=== PATIENT | male | born 1985 | race African-American/Black ===

== ENCOUNTER 2016-10-30 14:58 | Emergency (ER) | payer OTHER ==
[2016-10-30 15:07] VITALS: BP 152/88
--- NOTE | 2016-10-30 15:51 | RAD ---
Right hand, 3 views, 10/30/2016: History: Pain, injury There is a fracture of the distal fifth metacarpal at the base of the metacarpal head. There is slight volar and radial angulation of the distal fracture fragment without significant displacement. No other fracture or dislocation is identified. IMPRESSION: Nondisplaced fracture of the distal fifth metacarpal.
[2016-10-30] MEDS ORDERED: HYDR-971 PO (16:19)
[2016-10-30] MEDS ORDERED: NAPR500T8 PO (16:19)
--- NOTE | 2016-10-30 16:19 | PHYS DOC ---
Past Medical History Past Medical History: No Pertinent History Past Surgical History: No Surgical History Alcohol Use: Occasionally Drug Use: None Adult General Chief Complaint Chief Complaint: HAND PROBLEM HPI HPI Patient is a 31 year old Male with no significant medical history who presents today with right hand pain 4 out of 10 that began this morning. Patient states last night he was out with family members and had a couple shots of whiskey which he never drinks. He states he doesn't know what happened after that. He states he doesn't know if he fell or punched a wall. Review of Systems Review of Systems Constitutional: Denies fever or chills [] Musculoskeletal: Right hand pain Integument: Denies rash or skin lesions [] Neurologic: Denies headache, focal weakness or sensory changes [] Endocrine: Denies polyuria or polydipsia [] Allergies Allergies Allergies Coded Allergies Type Severity Reaction Last Updated Verified No Known Drug Allergies 10/30/16 No Physical Exam Physical Exam Constitutional: Well developed, well nourished, no acute distress, non-toxic appearance. [] Skin: Warm, dry, no erythema, no rash. [] Back: No tenderness, no CVA tenderness. [] Extremities: Right hand with small amount of swelling on the knuckles. Bruising noted on the right hand and knuckles. Right fifth knuckle appears deformed. Tenderness on palpation of the right fifth knuckle on the right index finger knuckle. Slightly Limited range of motion to the right index finger and pinky finger due to pain. Adequate ulna radial and medial sensation to the right hand. +2 right radial pulse. Cap refill less than 2 seconds the right upper extremity. Neurologic: Alert and oriented X 3, normal motor function, normal sensory function, no focal deficits noted. [] Psychologic: Affect normal, judgement normal, mood normal. [] Current Patient Data Vital Signs Vital Signs Date Time Temp Pulse Resp B/P Pulse Ox O2 Delivery O2 Flow Rate FiO2 10/30/16 15:07 99.1 106 20 96 Room Air 99.1 EKG EKG [] Radiology/Procedures Radiology/Procedures []PROCEDURE: HAND RIGHT 3V Right hand, 3 views, 10/30/2016: History: Pain, injury There is a fracture of the distal fifth metacarpal at the base of the metacarpal head. There is slight volar and radial angulation of the distal fracture fragment without significant displacement. No other fracture or dislocation is identified. IMPRESSION: Nondisplaced fracture of the distal fifth metacarpal. DICTATED and SIGNED BY: FRANKY KEY MD DATE: 10/30/16 1548 CC: BOBBY BARRIGA APRN ~ Course & Med Decision Making Course & Med Decision Making Pertinent Labs and Imaging studies reviewed. (See chart for details) Patient is in the ED with right hand pain, he doesn't know what happened last night whether he punched a wall or fell down. Right hand x-ray interpreted by radiologist-Nondisplaced fracture of the distal fifth metacarpal. He was placed in ulnar gutter by the solar installer technician, neurovascular exam done by me is normal. Cap refill <2 secs. Ice elevation encouraged. Follow-up with Ortho tomorrow. Dragon Disclaimer Dragon Disclaimer This electronic medical record was generated, in whole or in part, using a voice recognition dictation system. Departure Departure Impression: Primary Impression: Metacarpal bone fracture Disposition: HOME, SELF-CARE Condition: STABLE Referrals: GONZÁLEZ SULLIVAN MD call his office and get a follow appointment tomorrow Patient Instructions: Hand Fracture, Fifth Metacarpal Additional Instructions: You have right fifth metacarpal fracture. Keep the affected extremity iced and elevated as tolerated. Call Dr. Sullivan tomorrow and set up a follow-up appointment as soon as possible. Scripts Naproxen 500 Mg Tablet.dr1 Tab PO BID #60 TAB Ref 2 Prov:BOBBY BARRIGA APRN 10/30/16 Hydrocodone/Apap 5-325 ([place] 5-325 Tablet)1 Each Tablet1-2 Tab PO Q4-6HRS #20 TAB Prov:BOBBY BARRIGA APRN 10/30/16 Problem Qualifiers Primary Impression: Metacarpal bone fracture Encounter type: initial encounter Metacarpal bone: fifth Fracture type: closed Metacarpal location: other portion of metacarpal Fracture alignment: nondisplaced Laterality: right Qualified Code: S62.396A - Other fracture of fifth metacarpal bone, right hand, initial encounter for closed fracture BOBBY BARRIGA APRN Oct 30, 2016 16:19
== END 2016-10-30 16:28 | disposition home or self-care (01) ==
LOC: ER 14:58
DX: S62.316A Displaced fracture of base of fifth metacarpal bone, right hand, initial encounter for closed fracture (principal); X58.XXXA Exposure to other specified factors, initial encounter; Y93.89 Activity, other specified; Y92.89 Other specified places as the place of occurrence of the external cause; Y99.8 Other external cause status
CPT/HCPCS: 29125; 73130; 99284-25

== ENCOUNTER 2019-02-03 15:19 | Emergency (ER) | payer OTHER ==
[~2019-02-03] VITALS: Ht 190.5 cm; Wt 90.7 kg
[2019-02-03 15:19] VITALS: BP 123/75
[~2019-02-03 15:19] MED LIST: HYDR-3164 PO; NAPR500T8 PO
[2019-02-03] MEDS: LIDOCAINE 1% PF 2 ML VIAL. INJ ONE ×2 (15:30→16:01)
[2019-02-03] MEDS ORDERED: DIPHTH,PERTUSS(ACELL),TET TOX 0.5 ML DISP.SYRIN. VAX IM ONE (15:45)
--- NOTE | 2019-02-03 16:28 | PHYS DOC ---
Past Medical History Past Medical History: No Pertinent History Past Surgical History: No Surgical History Alcohol Use: Occasionally Drug Use: None Adult General Chief Complaint Chief Complaint: LACERATION/AVULSION HPI HPI 33-year-old male presents to ER via POV for complaints of accidental laceration to palm surface of his right thumb occurred when a dryer he was carrying slipped causing a piece of the metal to cut his right hand. Patient is uncertain of his last tetanus update. Patient denies any numbness or tingling or difficulty with range of motion of right hand. Patient is right hand dominant. Review of Systems Review of Systems Constitutional: Denies fatigue GI: Denies nausea, vomiting : Denies dysuria or hematuria [] Musculoskeletal: Reports pain at laceration site palm surface of rt hand Integument: Denies bruising/swelling Neurologic: Denies focal weakness or sensory changes [] All other systems were reviewed and found to be within normal limits, except as documented in this note. Current Medications Current Medications Current Medications Medications (Trade) Dose Ordered Sig/Elke Start Time Stop Time Status Last Admin Dose Admin Diphtheria/ Tetanus/Acell Pertussis (Boostrix) 0.5 ml ONCE ONCE 02/03/19 15:45 02/03/19 15:46 DC 02/03/19 16:02 0.5 ML Lidocaine HCl (Xylocaine-Mpf 1% 2ml Vial) 4 ml 1X ONCE 02/03/19 15:30 02/03/19 15:31 DC Allergies Allergies Allergies Coded Allergies Type Severity Reaction Last Updated Verified No Known Drug Allergies 10/30/16 No Physical Exam Physical Exam Constitutional: Well developed, well nourished, no acute distress, non-toxic appearance. [] HENT: Normocephalic, atraumatic, oropharynx moist Eyes: Pupils equal, conjunctiva normal, no discharge. [] Neck: Normal range of motion, supple Cardiovascular:Heart rate regular Lungs & Thorax: Resp. equal/nonlabored Skin: Warm, dry Extremities: No cyanosis, no clubbing, ROM intact, no edema. Laceration palm surface rt proximal thumb extending into medial side of thumb- full ROM of thumb. Cap refill brisk all fingers rt hand. 2+ radial. No active bleeding/ecchymosis. Flexor tendon intact against resistance Neurologic: Alert and oriented X 3, normal motor function, normal sensory function, no focal deficits noted. [] Psychologic: Affect normal, judgement normal, mood normal. [] Current Patient Data Vital Signs Vital Signs Date Time Temp Pulse Resp B/P (MAP) Pulse Ox O2 Delivery O2 Flow Rate FiO2 02/03/19 15:19 98.2 67 18 123/75 (91) 99 Room Air 98.2 EKG EKG [] Radiology/Procedures Radiology/Procedures Laceration Repair by me: [id number] Location: Rt palm/lateral surface thumb Tendon/Joint/Nerves: No injury- flexor tendon intact against resistance Foreign body: None detected after copious irrigation and exploration Technique: Mastisol and Steri-strips Complexity: No subcutaneous sutures/mucosal repair/edge excision Post Closure Length: 5 cm Patient's bleeding was easily controlled in the department and there is no indication of anemia. No evidence of compartment syndrome, neurologic injury, vascular injury, open joint, tendon laceration, or foreign body. Patient is appropriate for outpatient follow up. 48 hour wound check. Scar minimization instructions given. Course & Med Decision Making Course & Med Decision Making Pt was evaluated in the ER following a accidental laceration to palm surface of his right thumb. Patient was updated on his tetanus vaccine in the ER. Wound was thoroughly cleaned and on examination was found to have small skin flap with superficial laceration. No visible tendon on exam. Discussed options for wound repair with sutures versus Steri-Strips. Following discussion patient opted for Steri-Strips. Wound was thoroughly dried and Mastisol was used at wound edges avoiding any application to wound site. 1/4 inch Steri-Strips were applied and wound was well approximated at edges. Patient had no active bleeding and remained PMS intact in right upper extremity. Will have dressing applied an aluminum splint applied for wound protection. Wound care education was provided. Patient to follow-up with his primary care physician for wound reevaluation with any concerns or signs and symptoms of infection. Education provided on signs and symptoms to return to ER for and discharge instructions were discussed. Patient to use [id number] Tylenol and/or ibuprofen as needed. Dragon Disclaimer Dragon Disclaimer This electronic medical record was generated, in whole or in part, using a voice recognition dictation system. Departure Departure Impression: Primary Impression: Laceration Additional Impression: Skin wound closed with sterile strip Disposition: HOME, SELF-CARE Condition: STABLE Referrals: NO PCP (PCP) Patient Instructions: Laceration Care, Adult, Sterile Tape Wound Closure Additional Instructions: Monitor wound for signs of infection and follow-up with your primary doctor for re-evaluation. Wear the aluminum splint for wound support until healed. You were updated on her tetanus vaccine while in the ER. Problem Qualifiers REMY DESAI APRN Feb 03, 2019 16:28
== END 2019-02-03 16:41 | disposition home or self-care (01) ==
LOC: ER 15:19
DX: S61.011A Laceration without foreign body of right thumb without damage to nail, initial encounter (principal); W26.8XXA Contact with other sharp object(s), not elsewhere classified, initial encounter; Y93.89 Activity, other specified; Y92.89 Other specified places as the place of occurrence of the external cause; Y99.8 Other external cause status
CPT/HCPCS: 12002; 90471; 90715; 99283